=== PATIENT | female | born 1995 | race Caucasian/White ===

== ENCOUNTER 2016-04-28 22:43 | Emergency (ER) | payer OTHER ==
[2016-04-28 22:57] VITALS: BMI 31.1
--- NOTE | 2016-04-28 23:03 | PDOC ---
History of Present Illness - General Chief Complaint: SIRS, Suspected/Possible Stated Complaint: FEVER/34WKS SENT DOWN FROM L&D Time Seen by Provider: 04/28/16 22:57 History Source: Patient Exam Limitations: No Limitations - History of Present Illness Timing/Duration: reports: this morning Associated Symptoms: reports: cough, fever/chills. denies: chest pain/soreness Past History - Travel Traveled outside of the country in the last 30 days: No Close contact w/someone who was outside of country & ill: No - Past Medical History Allergies/Adverse Reactions: Allergies Allergy/AdvReac Type Severity Reaction Status Date / Time No Known Allergies Allergy Verified 04/28/16 16:42 Home Medications: Ambulatory Orders Pnv Comb.[id number]/Iron Bisgly/FA [ Capsule] 1 cap PO DAILY 07/07/11 Oseltamivir Phosphate [Tamiflu] 75 mg PO BID #10 capsule 04/29/16 Ibuprofen [Motrin -] 600 mg PO QID #28 tablet 06/09/16 Asthma: No Cancer: No Cardiac Disorders: No Diabetes: No HTN: No Seizures: No Thyroid Disease: No - Psycho/Social/Smoking Cessation Hx Suicidal Ideation: No Smoking History: Never smoked Have you smoked in the past 12 months: No Hx Alcohol Use: No Drug/Substance Use Hx: No Hx Substance Use Treatment: No Respiratory Specific PMHX - Complaint Specific PMHX Angina: No Bronchitis: No Pneumonia: No Review of Systems - Review of Systems Able to Perform ROS?: No Comments:: 04/28/16 23:02 CONSTITUTIONAL: +fever, chills Absent: diaphoresis, generalized weakness, malaise, loss of appetite HEENT: Absent: rhinorrhea, nasal congestion, throat pain, throat swelling, difficulty swallowing, mouth swelling, ear pain, eye pain, visual Changes CARDIOVASCULAR: Absent: chest pain, loss of consciousness, palpitations, irregular heart rate, peripheral edema RESPIRATORY: +cough Absent: shortness of breath, dyspnea with exertion, orthopnea, wheezing, stridor , hemoptysis GASTROINTESTINAL: Absent: abdominal pain, abdominal distension, nausea, vomiting, diarrhea, constipation, melena, hematochezia GENITOURINARY: Absent: dysuria, frequency, urgency, hesitancy, hematuria, flank pain, genital pain MUSCULOSKELETAL: Absent: myalgia, arthralgia, joint swelling SKIN: Absent: rash, itching, pallor HEMATOLOGIC/IMMUNOLOGIC: Absent: easy bleeding, easy bruising, lymphadenopathy, frequent infections ENDOCRINE: Absent: unexplained weight gain, unexplained weight loss, heat intolerance, cold intolerance NEUROLOGIC: Absent: headache, focal weakness or paresthesias, dizziness, unsteady gait, seizure, mental status changes, bladder or bowel incontinence PSYCHIATRIC: Absent: anxiety, depression, suicidal or homicidal ideation, hallucinations. Is the patient limited [place] proficient: No *Physical Exam - Vital Signs Last Vital Signs Temp Pulse Resp BP Pulse Ox 99 F 140 H 24 106/66 99 04/28/16 22:56 04/28/16 22:56 04/28/16 22:56 04/28/16 22:56 04/28/16 22:56 - Physical Exam Comments: 04/28/16 23:04 GENERAL: Well developed, well nourished. Awake and alert. No acute distress. HEENT: Normocephalic, atraumatic. PERRLA, EOMI. No conjunctival pallor. Sclera are non- icteric. Moist mucous membranes. Oropharynx is clear. NECK: Supple. Full ROM. No JVD. Carotid pulses 2+ and symmetric, without bruits. No thyromegaly. No lymphadenopathy. CARDIOVASCULAR: Regular rate and rhythm. No murmurs, rubs, or gallops. Distal pulses are 2+ and symmetric. PULMONARY: No evidence of respiratory distress. Lungs clear to auscultation bilaterally. No wheezing, rales or rhonchi. ABDOMINAL: Soft. Non-tender. Non-distended. No rebound or guarding. No organomegaly. Normoactive bowel sounds. MUSCULOSKELETAL Normal range of motion at all joints. No bony deformities or tenderness. No CVA tenderness. EXTREMITIES: No cyanosis. No clubbing. No edema. No calf tenderness. SKIN: Warm and dry. Normal capillary refill. No rashes. No jaundice. NEUROLOGICAL: Alert, awake, appropriate. Cranial nerves 2-12 intact. No deficits to light touch and temperature in face, upper extremities and lower extremities. No motor deficits in the in face, upper extremities and lower extremities. Normoreflexic in the upper and lower extremities. Normal speech. Toes are down- going bilaterally. Gait is normal without ataxia. PSYCHIATRIC: Cooperative. Good eye contact. Appropriate mood and affect. ED Treatment Course - LABORATORY CBC & Chemistry Diagram: 04/28/16 23:20 04/28/16 23:20 *DC/Admit/Observation/Transfer Diagnosis at time of Disposition: Viral upper respiratory infection, Anemia affecting in third trimester - Discharge Dispostion Disposition: HOME Condition at time of disposition: Improved - Prescriptions Prescriptions: Oseltamivir Phosphate [Tamiflu] 75 mg PO BID #10 capsule - Referrals Referrals: Fady Owen [Primary Care Provider] - - Patient Instructions Printed Discharge Instructions: DI for Viral Upper Respiratory Infection -- Adult Additional Instructions: Activity as tolerated. Stay well hydrated. A flu test today was negative, but we are treating you for flu because of your . Take Tamiflu as prescribed for 5 days. Blood tests show you are anemic (Hgb 7.8). This can often happen with , and will be monitored closely by your PRODUCT MARKETER. Tylenol every 8 hours as needed for fever/pain. Continue your medications as previously prescribed by your physician. You should follow up with your primary doctor and PRODUCT MARKETER as soon as possible regarding today's emergency department visit. Return to the emergency department for any new or concerning symptoms, particularly severe weakness or dehydration, palpitations or shortness of breath or chest pain, high fevers.
[2016-04-28] MEDS ORDERED: SODIUM CHLORIDE 1,000 ML IV SCH (23:15)
[2016-04-28 23:30] LABS: BASOPHIL 0.3 % (0-2.0); MCH 23.9 pg (25.7-33.7); MCHC 31.8 g/dl (32.0-36.0); MEAN CELL VOLUME 75.2 fl (80-96); MEAN PLT VOLUME 9.1 fl (7.5-11.1); NEUTROPHILS 90.6 % (42.8-82.8); PLATELET COUNT 159 K/MM3 (134-434); RDW 15.3 % (11.6-15.6); WHITE BLOOD COUNT 9.4 K/mm3 (4.0-10.0)
[2016-04-28 23:59] LABS: ALBUMIN 2.8 g/dl (3.4-5.0); ALK PHOS 114 U/L (45-117); ANION GAP 13 (8-16); BILIRUBIN,TOTAL 0.4 mg/dL (0.2-1.0); CALCIUM 8.1 mg/dL (8.5-10.1); CO2 21 mmol/L (21-32); CREATININE 0.6 mg/dL (0.55-1.02); GLUCOSE,RANDOM 114 mg/dL (74-106); SGOT/AST 23 U/L (15-37); SGPT/ALT 21 U/L (12-78); TOT PROT 6.1 g/dl (6.4-8.2)
--- NOTE | 2016-04-29 00:21 | PDOC ---
*Physical Exam - Vital Signs Last Vital Signs Temp Pulse Resp BP Pulse Ox 99 F 140 H 24 106/66 99 04/28/16 22:56 04/28/16 22:56 04/28/16 22:56 04/28/16 22:56 04/28/16 22:56 - Physical Exam Comments: 04/29/16 00:18 afebrile here. regular tachycardia OP clear, ctab ED Treatment Course - LABORATORY CBC & Chemistry Diagram: 04/28/16 23:20 04/28/16 23:20 - ADDITIONAL ORDERS Additional order review: Laboratory Results 04/28/16 04/28/16 23:20 23:20 Sodium 139 Potassium 3.4 L Chloride 105 Carbon Dioxide 21 Anion Gap 13 BUN 6 L D Creatinine 0.6 D Creat Clearance w eGFR > 60 Random Glucose 114 H D Lactic Acid 1.241 Calcium 8.1 L Total Bilirubin 0.4 D AST 23 D ALT 21 Alkaline Phosphatase 114 D Total Protein 6.1 L Albumin 2.8 L 04/28/16 23:20 RBC 3.26 L D MCV 75.2 L MCHC 31.8 L RDW 15.3 D MPV 9.1 D Neutrophils % 90.6 H D Lymphocytes % 2.2 L D Monocytes % 6.9 Eosinophils % 0.0 D Basophils % 0.3 Medical Decision Making - Medical Decision Making 04/29/16 00:18 Patient seen and evaluated with the nurse practitioner. I agree with the overall evaluation, assessment, and management with the following summary of visit: 21-year-old female 34 weeks gestation presents to the hospital with URI symptoms and subjective fever since this morning, seen by labor and delivery and had negative flu test, sent to ED for further evaluation. Noted to be significantly tachycardic, otherwise well-appearing with some nasal congestion, with clear lungs. Workup revealed notable anemia with hemoglobin 7.8, no leukocytosis but left shift, chemistries within normal limits without elevated LFTs and with normal lactate. The URI together with the anemia would likely explain the tachycardia. We will address the anemia with OB. Would treat empirically for influenza given third trimester . Will reassess after IV fluids, discuss with OB, dispo accordingly. Clinically low suspicion for PE given the more likely causes of tachycardia (URI , anemia), no DVT sxs or signs, no cp/sob/hypoxia. 04/29/16 00:50 D/W OB, no indication for intervention for the anemia. Will follow closely as outpt. Agree with plan to d/c on empiric tamiflu. Pt HR improved to 110 after 1L NS, ambulating comfortably in ED, O2 sat 100% room air. Agrees with d/c plan, understands return criteria. *DC/Admit/Observation/Transfer Diagnosis at time of Disposition: Viral upper respiratory tract infection, Anemia affecting in third trimester - Discharge Dispostion Disposition: HOME Condition at time of disposition: Improved - Prescriptions Prescriptions: Oseltamivir Phosphate [Tamiflu] 75 mg PO BID #10 capsule - Referrals Referrals: Fady Owen [Primary Care Provider] - - Patient Instructions Printed Discharge Instructions: DI for Viral Upper Respiratory Infection -- Adult Additional Instructions: Activity as tolerated. Stay well hydrated. A flu test today was negative, but we are treating you for flu because of your . Take Tamiflu as prescribed for 5 days. Blood tests show you are anemic (Hgb 7.8). This can often happen with , and will be monitored closely by your COMPUTER TERMINAL OPERATOR. Tylenol every 8 hours as needed for fever/pain. Continue your medications as previously prescribed by your physician. You should follow up with your primary doctor and COMPUTER TERMINAL OPERATOR as soon as possible regarding today's emergency department visit. Return to the emergency department for any new or concerning symptoms, particularly severe weakness or dehydration, palpitations or shortness of breath or chest pain, high fevers.
[2016-04-29 01:07] VITALS: BP 109/58; PULSE 110; TEMP 98.3
--- NOTE | 2016-04-29 11:24 | EKG ---
Test Reason : Blood Pressure : / mmHG Vent. Rate : 121 BPM Atrial Rate : 121 BPM P-R Int : 128 ms QRS Dur : 084 ms QT Int : 330 ms P-R-T Axes : 044 044 011 degrees QTc Int : 468 ms SINUS TACHYCARDIA POSSIBLE ANTERIOR INFARCT , AGE UNDETERMINED ABNORMAL ECG NO PREVIOUS ECGS AVAILABLE Confirmed by SAURABH SALDIVAR MD ([id number]) on 04/29/2016 11:24:41 AM Referred By: Confirmed By:SAURABH SALDIVAR MD
== END 2016-04-29 01:10 | disposition home or self-care (01) ==
LOC: JER 22:43
PROC: 3E0337Z Introduction of Electrolytic and Water Balance Substance into Peripheral Vein, Percutaneous Approach (ICD-10-PCS; principal; 2016-04-28)
DX: O99.013 Anemia complicating pregnancy, third trimester (principal); Z3A.34 34 weeks gestation of pregnancy; O99.89 Other specified diseases and conditions complicating pregnancy, childbirth and the puerperium; J06.9 Acute upper respiratory infection, unspecified; B97.89 Other viral agents as the cause of diseases classified elsewhere
CPT/HCPCS: 36415; 80053; 83605; 85025; 87040; 93005; 93010; 96360; 96361; 99283-25